=== PATIENT | female | born 1970 | race Two or more races ===

== ENCOUNTER 2024-08-31 08:44 | Emergency (ER) | payer MEDICAID, SELFPAY ==
[2024-08-31 09:01] VITALS: BP 188/122; PULSE 100; RESP 22; TEMP 37.6; O2SAT 93; BMI 44.4
--- NOTE | 2024-08-31 09:05 | EKG_ITS ---
[facility] Test Date: 2024-08-31 Pat Name: OZ JIMENEZ Department: Room: - Gender: Female Corporate Receptionist: : 1970 Requested By: Concha Alvarado Order Number: [id number] Reading MD: Concha Alvarado Measurements Intervals [place] Rate: 81 P: 47 TX: 153 QRS: 24 QRSD: 83 T: 44 QT: 377 QTc: 438 Interpretive Statements SINUS RHYTHM POSSIBLE LEFT ATRIAL ENLARGEMENT [-0.1mV P-WAVE IN V1/V2] POSSIBLE RIGHT VENTRICULAR CONDUCTION DELAY [RSR (QR) IN V1/V2] Compared to ECG 04/26/2022 17:54:05 No significant changes /store/S0/[id number]/ecg/[id number].pdf
--- NOTE | 2024-08-31 09:05 | XR_ITS ---
Examination: PA chest single view Technique: Upright PA chest single view Date and time: August 31, 2024, 0915 hrs. Comparison April 26, 2022 Indications: Coughing today. Findings: Mild enlargement cardiac contour Mild to moderate vascular congestion. No lobar pneumonia. Moderate osteopenia Impression: Mild to moderate vascular congestion. No lobar pneumonia
--- NOTE | 2024-08-31 09:11 | EDNOTE_ITS ---
ED SOB =RME/HPI General Chief Complaint: Flu Like Symptoms Stated Complaint: cough, sob, upper back pain x 3days, worse today Time Seen by Provider: 08/31/24 08:50 Arrival date/time: 08/31/24 08:44 This is a case of a 53-year-old female who came in in the emergency room due to productive cough for 3 days associated with nasal congestion no fever no chills no ear pain no sore throat worsening of the symptoms today now with shortness of breath pain on mid back and pleuritic chest pain this patient decided to start consult here in the emergency room Limitations: no limitations Related Data Previous Rx's ?Medication ?Instructions ?Recorded albuterol sulfate 2.5 mg/3 mL 2.5 mg (3 mL) inhalation Q6H #90 mL 04/26/22 (0.083 %) solution for nebulization albuterol sulfate 90 mcg/actuation 2 puff inhalation Q 6H PRN 04/26/22 aerosol inhaler shortness of breath or wheez ing #8.5 grams budesonide 0.5 mg/2 mL suspension 0.5 mg (2 mL) inhala tion BID #60 mL 04/26/22 for nebulization budesonide-formoterol HFA 80 2 puff inhalation Q12H #1 0.2 grams 04/26/22 mcg-4.5 mcg/actuation aerosol inhaler (Symbicort) cetirizine 10 mg tablet (Zyrtec) 10 mg PO QDAY PRN all ergy symptoms 04/26/22 #30 tabs tramadol 50 mg tablet 50 mg PO Q6H PRN pain #30 ta bs 05/06/22 albuterol sulfate 90 mcg/actuation 2 puff inhalation Q 6H PRN 08/31/24 aerosol inhaler (Ventolin HFA) shortness of breath or wheezing #8.5 grams azithromycin 250 mg tablet See Rx Instructions PO .COM PLEX #6 08/31/24 (Zithromax Z-Richard) tabs promethazine-DM 6.25 mg-15 mg/5 mL 5 ml PO Q6H PRN cou gh #118 mL 08/31/24 oral syrup Allergies Allergy/AdvReac Type Severity Reaction Status Date / Time Penicillins Allergy Severe Swelling Verified 08/31/24 08:48 of Lip/Tongue/Throat Review of Systems Review of Systems Systems Reviewed: All systems reviewed, normal except as documented Constitutional Constitutional: Reports system reviewed and no additional complaints, except as documented, Denies as per HPI, Denies chills, Denies fever(s), Denies headache(s) and Denies snoring ENT Ears, Nose, Mouth, and Throat: Reports system reviewed and no additional complaints, except as documented, Reports as per HPI, Denies dizziness, Denies ear discharge, Denies facial pain, Denies headache(s), Reports nasal congestion, Reports nasal discharge, Denies neck pain, Denies sinus pain, Denies sinus pressure, Denies sore throat, Denies throat swelling and Denies tinnitus Cardiovascular Cardiovascular: Reports system reviewed and no additional complaints, except as documented, Reports as per HPI, Reports chest pain, Reports dyspnea and Denies dyspnea on exertion Respiratory Respiratory: Reports system reviewed and no additional complaints, except as documented, Reports as per HPI, Denies change in phlegm color, Reports chest congestion, Reports cough, Reports dyspnea, Denies dyspnea on exertion, Denies excessive phlegm production, Denies hemoptysis, Denies pain on inspiration, Reports pain with cough, Denies snoring, Denies stridor and Denies wheezing Gastrointestinal Gastrointestinal: Reports system reviewed and no additional complaints, except as documented and Reports as per HPI Musculoskeletal Musculoskeletal: Reports system reviewed and no additional complaints, except as documented, Reports as per HPI and Denies neck pain Neurologic Neurologic: Reports system reviewed and no additional complaints, except as documented, Reports as per HPI, Denies dizziness and Denies headache(s) Allergic/Immunologic Allergic/Immunologic: Denies throat swelling and Denies wheezing Past Medical History Past Medical History CARDIAC: Negative Congestive Heart Failure RESPIRATORY: Negative Chronic Obstructive Pulmonary Disease (COPD) GENITOURINARY: Negative Renal Disease ENDOCRINE: Negative Diabetes Mellitus Type 1 or Diabetes Mellitus Type 2 Social History SMOKING STATUS: Never smoker ED Exam General Limitations: Present no limitations General appearance: Present alert and in no apparent distress; Absent appears intoxicated or anxious Head Head exam: Present atraumatic, normocephalic and normal inspection Eye Eye exam: Present normal appearance, PERRL and EOMI ENT ENT exam: Present normal exam, normal oropharynx, mucous membranes moist, TM's normal bilaterally and normal external ear exam Neck Neck exam: Present normal inspection, full ROM and trachea midline; Absent tenderness, meningismus, lymphadenopathy or thyromegaly Chest Chest inspection: Present normal inspection and symmetric chest wall rise; Absent tenderness, rash or abscess Respiratory Respiratory exam: Present normal lung sounds bilaterally, wheezes (Wheezing both lower lung field no crackles no rales no retraction no stridor) and other (Mild to moderate wheezing both lower lung field no crackles no rales no retraction no stridor); Absent respiratory distress, stridor, accessory muscle use or prolonged expiratory phase Cardiovascular Cardiovascular exam: Present regular rate, normal rhythm and normal heart sounds; Absent bradycardia, tachycardia, irregular rhythm or systolic murmur Abdominal Exam Abdominal exam: Present soft and normal bowel sounds; Absent tenderness Extremities Exam Extremities exam: Present normal inspection and full ROM Back Exam Back exam: Present normal inspection and full ROM Neurological Exam Neurological exam: Present alert, oriented X3, CN II-XII intact, normal gait and reflexes normal; Absent motor sensory deficit Psychiatric Psychiatric exam: Present normal affect and normal mood Skin Skin exam: Present warm, dry, intact and normal color Course Quality Measures none Orders Category Date Time Status Bedside COVID-19 Antigen Test NOW Care 08/31/24 09:05 Active Bedside Influenza A&B Antigen Test NOW Care 08/31/24 09:05 Completed EKG (ED ONLY) *Do not use* NOW Care 08/31/24 09:05 Completed EKG (ED Only) Stat Exams 08/31/24 09:05 Draft XR chest 1V portable Stat Exams 08/31/24 09:05 Completed BNP [B-Type Natriuretic Peptide] Stat Lab 08/31/24 09:55 Completed CBC Stat Lab 08/31/24 09:55 Completed CMP [Comprehensive Metabolic Panel] Stat Lab 08/31/24 09:55 Completed D-Dimer Stat Lab 08/31/24 09:55 Completed Troponin I Stat Lab 08/31/24 09:55 Completed Albuterol/Ipratr Rt Zayra [Duoneb Rt Zayra] Med 08/31/24 09:05 Discontinued 3 ml INH X1 ONE Dexamethasone Inj [Decadron Inj] Med 08/31/24 09:05 Discontinued 10 mg IM X1 ONE Vital Signs Vital signs: Vital Signs Temperature 99.7 F 08/31/24 09:01 Pulse Rate 100 08/31/24 09:01 Respiratory Rate 22 H 08/31/24 09:01 Blood Pressure 188/122 H 08/31/24 09:01 Pulse Oximetry (%) 93 L 08/31/24 09:01 Oxygen Delivery Method Room Air 08/31/24 09:01 Patient is afebrile not tachycardic not tachypneic BP noted to be 188/122 after giving treatment BP was rechecked and noted to be 155/95 oxygen saturation showed 93% after giving treatment went up to 96% in room normal Shortness of Breath / Dyspnea MDM Narrative MDM Narrative:: This is a case of a 53-year-old female who came in in the emergency room due to productive cough for 3 days associated with nasal congestion no fever no chills no ear pain no sore throat worsening of the symptoms today now with shortness of breath pain on mid back and pleuritic chest pain this patient decided to start consult here in the emergency room physical examination patient is awake alert oriented not in distress nontoxic looking patient initial oxygen saturation was 93% patient noted to have wheezing both lower lung field no crackles no rales no retraction no stridor heart normal rate regular rhythm no murmur patient is afebrile not tachycardic PE is elevated after giving breathing treatment of DuoNeb and dexamethasone patient condition markedly improved patient wheezing was resolved lung sounds is clear no crackles no rales no retraction no stridor his oxygen saturation was rechecked and noted to be 96% in room air and BP went to normal blood test showed slight leukocytosis at 13,000 no anemia kidney and liver function is normal no electrolyte imbalance patient troponin is negative BNP is normal D-dimer is normal thus patient does not have pulmonary embolism or UT patient x-ray showed mild pulmonary congestion BNP is normal at this point patient will be discharged as acute bronchitis patient will follow-up with PCP in 2 days for reevaluation and to be referred to [facility] for chest pain for possible echocardiogram stress test and Holter monitor she was prescribed with Z-Richard Ventolin inhaler and cough medication she was advised for any recurrence worsening symptoms or any emergent concerns she will return to the emergency room immediately or call 911 patient EKG is also normal Patient was discharged with comfortable condition walking with stable gait. Patient verbalized no further complains explained diagnosis and answered patient question. Patient is comfortable with the proposed management plan including the need to follow up with his/her primary care physician and any specialist if applicable Discussed patient for any urgent condition or worsening sx, He/She needed to go to emergency room immediately or call 911. Patient acknowledge the responsibility to follow up as instructed and to monitor her/his symptoms. For any persistence of the symptoms for more than 3-5 days return precaution advised. Discussed the result of the test and was given printed discharge instruction Patient data External records reviewed:: [facility] previous records Clinical information provided by:: patient Social determinants that could affect healthcare access:: none Patient has the following chronic illnesses:: None How is presenting disease/condition affected by chronic disease/condition?: no chronic disease Evaluation data The following diagnostics were reviewed and interpreted by me:: lab results and radiology exam(s) Lab and/or radiology exams considered but not ordered:: Reviewed Interpretation Summary: Reviewed Medications / Prescriptions Medications or Prescriptions considered but not ordered:: Given Medication administrations:: Medication Administration History Discontinued Medications Albuterol/Ipratropium (Albuterol/Ipratropium (Duoneb) Rt Zayra 3 Ml Nebu) 3 ml INH X1 ONE Stop: 08/31/24 09:06 Last Admin: 08/31/24 09:12 Dose: 3 ml Documented By: JENNIFER Dexamethasone Sodium Phosphate (Dexamethasone Sod Phos Inj 10 Mg/Ml Vial) 10 mg IM X1 ONE Stop: 08/31/24 09:06 Given Consultations Consultation(s) initiated? (list below): No Diagnosis Shortness of Breath Differential Diagnosis: congestive heart failure, asthma w ith exacerbation and other (Acute bronchitis) Most likely diagnosis given after review of the tests above:: Acute bronchitis Admission Indicated Admission indicated?: not indicated Admission Request Was there a request for admission?: No Admission Attestation Admission request attestation: Not indicated Disposition Plan Disposition Plan: Discharge Discharge Attestation Discharge Attestation: The patient and all family members were given an opportunity to ask questions and understood the discharge instructions. Discharge instructions specifically effects, indications for sooner follow up or return to the emergency department, and the expected course of current diagnosis. Patient condition: Stable Discharge Plan Plan Patient Disposition: HOME (Self Care) Patient condition on transfer: Stable Prescriptions/Referrals Prescriptions/Med Rec: New azithromycin [Zithromax Z-Richard] 250 mg tablet See Rx Instructions .ROUTE .COMPLEX Qty: 6 0RF Rx Instructions: For 250 mg dose pack: take 500 mg today (day 1), then 250 mg for 4 days (days 2-5) albuterol sulfate [Ventolin HFA] 90 mcg/actuation HFA aerosol inhaler 2 puff inhalation Q6H PRN (Reason: shortness of breath or wheezing) Qty: 8.5 0RF promethazine-DM 6.25-15 mg/5 mL syrup 5 ml PO Q6H PRN (Reason: cough) Qty: 118 0RF No Action tramadol 50 mg tablet 50 mg PO Q6H PRN (Reason: pain) Qty: 30 0RF albuterol sulfate 90 mcg/actuation HFA aerosol inhaler 2 puff inhalation Q6H PRN (Reason: shortness of breath or wheezing) Qty: 8.5 0RF budesonide-formoterol [Symbicort] 80-4.5 mcg/actuation HFA aerosol inhaler 2 puff inhalation Q12H Qty: 10.2 0RF albuterol sulfate 2.5 mg /3 mL (0.083 %) solution for nebulization 2.5 mg inhalation Q6H Qty: 90 0RF budesonide 0.5 mg/2 mL suspension for nebulization 0.5 mg inhalation BID Qty: 60 0RF cetirizine [Zyrtec] 10 mg tablet 10 mg PO QDAY PRN (Reason: allergy symptoms) Qty: 30 0RF Referrals: No Primary/Family,Physician [Primary Care Provider] - In 1 week Problem List Clinical Impression: Acute bronchitis, Pleuritic chest pain Patient/Caregiver Discharge Instructions Education Materials: Acute Bronchitis, ED Chest Pain, Noncardiac Additional Instructions: Follow-up with your primary care physician in 2 days for reevaluation and to be referred to [facility] for further evaluation and treatment of chest pain for possible echocardiogram stress test and Holter monitor for any worsening symptoms or any emergent concerns recurrence of symptoms return to the emergency room immediately or call 911 take your medication as directed Print Language: Colombian Stand Alone Forms: Ayana Award Info., Patient Portal Info Letter PA/LEAD SQL DEVELOPER Supervising Physician PA/LEAD SQL DEVELOPER Supervising Physician: DR ANGELES
[2024-08-31] MEDS: ALBUTEROL/IPRATROPIUM (Duoneb) RT SOL 3 ML NEBU INH (09:12)
[2024-08-31 09:14] VITALS: PULSE 107; RESP 22; O2SAT 98
[2024-08-31 09:49] VITALS: BP 175/81; PULSE 93; RESP 19; O2SAT 95
[2024-08-31 10:33] LABS: Basophils % (Auto) 0 % (0-2.5); Eosinophils # (Auto) 0.4 Thou/mm3 (0.0-0.5); Eosinophils % (Auto) 3 % (0-10); Hematocrit 41.7 % (36.0-46.0); Hemoglobin 14.3 g/dL (12.0-16.0); Immature Granulocytes % (Auto) 0 % (0-0); Immature Granulocytes Auto 0.04 Thou/mm3 (0.00-0.00); Lymphocytes # (Auto) 3.1 Thou/mm3 (1.0-4.8); Lymphocytes % (Auto) 24 % (10-50); Mean Corpuscular HGB Conc 34.3 g/dl (31.0-37.0); Mean Corpuscular Hemoglobin 29.5 pg (25.0-35.0); Mean Corpuscular Volume 86 fL (80-100); Monocytes # (Auto) 0.7 Thou/mm3 (0.0-0.8); Monocytes % (Auto) 5 % (0-12); Neutrophils # (Auto) 8.9 Thou/mm3 (1.8-7.7); Neutrophils % (Auto) 68 % (37-80); Nucleated Red Blood Cell % 0 /100 WBC (0); Platelet Count 295 Thou/mm3 (140-440); RDW Standard Deviation 43.8 fL (36.4-46.3); Red Blood Count 4.85 Miln/mm3 (4.00-5.20); White Blood Count 13.1 Thou/mm3 (3.6-11.0)
[2024-08-31 10:56] LABS: B-Type Natriuretic Peptide < 20 pg/mL (0-100)
[2024-08-31 10:58] LABS: Alanine Aminotransferase 19 U/L (10-49); Albumin, Serum 4.6 gm/dL (3.5-5.0); Albumin/Globulin Ratio 1.3 (1.2-2.2); Alkaline Phosphatase 85 U/L (46-116); Anion Gap 8 (7-16); Aspartate Amino Transferase 14 U/L (0-34); BUN/Creatinine Ratio 11 Ratio (12-20); Bilirubin,Total 0.8 mg/dL (0.3-1.2); Blood Urea Nitrogen 8 mg/dL (9-23); Calcium 9.3 mg/dL (8.3-10.6); Calcium (Corrected) 9.3 mg/dL (8.5-10.1); Carbon Dioxide 27.9 mMol/L (20.0-31.0); Chloride 103 mMol/L (98-107); Creatinine (Component) 0.7 mg/dL (0.6-1.3); Estimated Creatinine Clearance 122.8 mL/min (>60); Globulin 3.5 gm/dL (2.3-3.5); Glucose 110 mg/dL (74-106); Osmolality,Calculated 276 (275-295); Potassium 3.7 mMol/L (3.4-5.1); Sodium 139 mMol/L (136-145); Total Protein 8.1 gm/dL (5.7-8.2); Troponin I < 0.020 ng/mL (0.0-0.045); eGFR > 60 See Note
[2024-08-31 11:16] LABS: D-Dimer 282 ng/mL (<600)
[2024-08-31 11:49] VITALS: BP 162/87; PULSE 80; RESP 19; TEMP 37.2; O2SAT 96
[2024-08-31] MEDS: DEXAMETHASONE SOD PHOS INJ 10 MG/ML VIAL IM (11:49)
== END 2024-08-31 12:30 | disposition home or self-care (01) ==
PROVIDERS: Nurse Practitioner Family; Emergency Provider Emergency Medicine
DX: J20.9 Acute bronchitis, unspecified (principal)
CPT/HCPCS: 36415; 71045; 80053; 83880; 84484; 85025; 85379; 87400; 87811; 93005; 94640; 96372; 99283; A9270; J1100